=== PATIENT | male | born 1950 | race Caucasian/White ===

== ENCOUNTER 2017-06-12 06:21 | Day surgery (SDC) | payer BC ==
[~2017-06-12] VITALS: Ht 193 cm; Wt 100.7 kg
[~2017-06-12 06:21] MED LIST: ANTIFUNGAL1%; CLINDAMYCIN HC300 MG PO; COZAAR25 MG PO; LAC PO; METFORMIN HCL850 MG PO; MOTRIN800 MG PO; NEU300 PO; PENTOXIFYLLINE400 MG PO
[2017-06-12 06:55] VITALS: BP 145/84
[2017-06-12 10:36] VITALS: BP 145/95
== END 2017-06-12 10:30 | disposition home or self-care (01) ==
LOC: GI 06:21 → OR 07:30 → GI 07:30
PROVIDERS: Internal Medicine Gastroenterology
PROC: 0DBP8ZZ Excision of Rectum, Via Natural or Artificial Opening Endoscopic (ICD-10-PCS; principal; 2017-06-12 07:30)
DX: Z12.11 Encounter for screening for malignant neoplasm of colon (principal); D12.8 Benign neoplasm of rectum; K57.30 Diverticulosis of large intestine without perforation or abscess without bleeding; K64.8 Other hemorrhoids; K63.89 Other specified diseases of intestine; M06.9 Rheumatoid arthritis, unspecified; I10 Essential (primary) hypertension; E11.9 Type 2 diabetes mellitus without complications; Z68.27 Body mass index [BMI] 27.0-27.9, adult
CPT/HCPCS: 45378; J1200; J1610; J2250; J2310; J3010; J3490